=== PATIENT | female | born 1960 | race Caucasian/White ===

== ENCOUNTER 2016-10-04 22:12 | Emergency (ER) | payer MEDICARE, OTHER ==
[~2016-10-04] VITALS: Ht 157.5 cm; Wt 101.0 kg
[~2016-10-04 22:12] MED LIST: AMOX1TAB10 PO; CYCL-319 PO; DICL50TA11 PO; ELIM TOP; HC30CR25 TOP; HYDR-906 PO; IBUP-1542 PO; KETO5DRO58 OP
[2016-10-04 22:18] VITALS: Ht 157.5 cm; Wt 101.0 kg
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
--- NOTE | 2016-10-05 00:41 | RADRPT ---
PROCEDURE: CT brain without contrast. CLINICAL INDICATION: Injury and pain. TECHNIQUE: CT scan of the brain was performed on a multi-detector high-resolution CT scanner. Co ntiguous axial images were obtained from the skull base to the vertex without intravenous contrast. Coronal and sagittal reformatted images were also obtained. Images were reviewed on the PACS works tation. One or more of the following dose reduction techniques were used: - Automated exposure control. - Adjustment of the mA and/or kV according to patient size. - Use of iterative reconstruction technique. Exam CTD/vol = 45.01 mGy. Total exam DLP = 720.23 mGy-cm. COMPARISON: None. FINDINGS: The ventricles and cortical sulci are within normal limits for patient's age. There are no areas of abnormal attenuation within the brain parenchyma. There is no mass effect or midline shift. There is no intracranial hemorrhage or abnormal extra-axial collection. The calvarium is intact. There is no evidence of fracture. Visualized paranasal sinuses and mastoid air cells are clear. IMPRESSION: No acute intracranial abnormality identified. .Kane Medina MD, MD Date Time Electronically viewed and signed by .Kane Medina MD, MD on 10/05/2016 00:40 .T/
--- NOTE | 2016-10-05 01:04 | RADRPT ---
PROCEDURE: XR Shoulder. CLINICAL INDICATION: Left shoulder pain. TECHNIQUE: 3 views of the left shoulder. COMPARISON: None available. FINDINGS: There is no fracture or dislocation. The coracoclavicular interval is normal. The joint spaces are preserved. There are no periarticular calcifications. The visualized lung is clear. IMPRESSION: 1. No fracture or dislocation of the left shoulder. RPTAT: HTAR .Roman Vogel MD, MD Date Time Electronically viewed and signed by .Roman Vogel MD, on 10/05/2016 01:04 .R/
--- NOTE | 2016-10-05 01:04 | RADRPT ---
PROCEDURE: CT Lumbar Spine without contrast. CLINICAL INDICATION: Injury and pain. TECHNIQUE: CT scan of the lumbar spine was performed on a multi-detector high-resolution CT scanbanner. Contiguous axial images were obtained without intravenous contrast. Coronal and sagittal refor matted images were also obtained. Images were reviewed on the PACS workstation. One or more of the following dose reduction techniques were used: - Automated exposure control. - Adjustment of the mA and/or kV according to patient size. - Use of iterative reconstruction technique. Exam CTD/vol = 37.82 mGy. Total exam DLP = 1246.49 mGy-cm. COMPARISON: None. FINDINGS: There are 6 lumbar-type vertebral bodies. There is mild degenerative anterolisthesis of L5 on S1. Gisela mbar vertebral body heights are within normal limits. There is no acute fracture identified. At T12-L1, the disk height is within normal limits. There is no central canal or neural foraminal s tenosis. At L1-L2, the disk height is within normal limits. There is no central canal or neural foraminal st enosis. At L2-L3, the disk height is within normal limits. There is a mild posterior disk bulge there is The re is no central canal or neural foraminal stenosis. At L3-L4, there is mild loss of disk height and air vacuum phenomenon. There is a mild diffuse disk osteophyte complex which combined with mild bilateral facet and ligamentum flavum hypertrophy resul ts in mild central canal stenosis. There is severe right and moderate left neural foraminal stenosi s. At L4-L5, there is mild loss of disk height and a mild diffuse disk osteophyte complex which combine d with moderate bilateral facet and ligamentum flavum hypertrophy results in moderate central canal stenosis. There is moderate right and mild left neural foraminal stenosis. At L5-S1, there is mild loss of disk height and air vacuum phenomenon. There is a mild 3 mm AP diam eter degenerative anterolisthesis of L5 on S1. There is a mild diffuse disk osteophyte complex whic h combined with moderate bilateral facet and ligamentum flavum hypertrophy results in mild central c anal stenosis. There is mild to moderate bilateral neural foraminal stenosis. There is no paraspinal mass or collection. There is a calculus within the lower pole of the right ki dney measuring 6 x 3 mm. IMPRESSION: No acute fracture identified. Mild lumbar spondylosis. There is multilevel central canal and neural foraminal stenosis as describ ed. Mild degenerative anterolisthesis of L5 on S1. Nonobstructing right renal calculus. .Kane Medina MD, Date Time Electronically viewed and signed by .Kane Medina MD, on 10/05/2016 01:04 .T/
--- NOTE | 2016-10-05 01:04 | RADRPT ---
PROCEDURE: XR Finger. CLINICAL INDICATION: Pain. TECHNIQUE: Three views of the right thumb. COMPARISON: None available. FINDINGS: No fracture or dislocation is identified. The joint spaces are preserved. There is soft tissue swe lling along the first finger. No radiopaque foreign body is identified. IMPRESSION: 1. No fracture or dislocation of the right thumb. 2. Soft tissue swelling. RPTAT: HTAR .Roman Vogel MD, MD Date Time Electronically viewed and signed by .Roman Vogel MD, on 10/05/2016 01:04 .R/
[2016-10-05] MEDS ORDERED: AMOX1TAB10 PO (01:22)
[2016-10-05] MEDS ORDERED: IBUP400T22 PO (01:22)
[2016-10-05] MEDS ORDERED: HYDR-906 PO (01:22)
[2016-10-05] MEDS ORDERED: CYCL-319 PO (01:22)
[2016-10-05] MEDS ORDERED: traMADol 50 MG TAB PO ONE (01:30)
[2016-10-05 02:00] VITALS: BP 133/88; PULSE 69; RESP 20; TEMP 98.3
== END 2016-10-05 03:41 | disposition home or self-care (01) ==
LOC: FTE 22:12
DX: S06.0X0A Concussion without loss of consciousness, initial encounter (principal); S16.1XXA Strain of muscle, fascia and tendon at neck level, initial encounter; S60.011A Contusion of right thumb without damage to nail, initial encounter; M54.5 Low back pain; M25.511 Pain in right shoulder; F17.210 Nicotine dependence, cigarettes, uncomplicated; Y04.1XXA Assault by human bite, initial encounter
CPT/HCPCS: 70450; 72125; 72131; 73030; 73140

== ENCOUNTER 2017-02-21 22:06 | Emergency (ER) | payer MEDICARE, OTHER ==
[~2017-02-21] VITALS: Ht 160 cm; Wt 105.5 kg
[~2017-02-21 22:06] MED LIST changes: +IBUP400T22 PO; -KETO5DRO58 OP; +KETO5DRO71 OP
[2017-02-21 22:23] VITALS: Ht 160 cm; Wt 105.5 kg
[2017-02-22] MEDS ORDERED: IBUPROFEN 600 MG TAB PO ONE (03:00)
--- NOTE | 2017-02-22 03:50 | RADRPT ---
PROCEDURE: Chest. CLINICAL INDICATION: Chest pain. TECHNIQUE: Single frontal view of the chest was obtained. COMPARISON: None. FINDINGS: The cardiac silhouette is within normal limits. The aortic arch is unremarkable. There is no focal consolidation, vascular congestion or pleural effusion. There is mild subsegmental atelectasis wit hin the left lung base. There is no pneumothorax. IMPRESSION: Mild left basilar subsegmental atelectasis. .Kane Medina MD, Date Time Electronically viewed and signed by .Kane Medina MD, MD on 02/22/2017 03:49 .T/
[2017-02-22] MEDS ORDERED: AZIT250T94 PO (05:17)
--- NOTE | 2017-02-22 05:46 | ERA ---
ER Documentation Chief Complaint Date/Time DATE: 02/22/17 TIME: 05:35 Chief Complaint multi symptoms like CORCORAN,tingling,ear pains,tonsils,et al HPI 56-year-old female presents with a chief complaint of headache at 2 months. States that the headache has been intermittent. Describes the headache as bilateral, pounding, pressure. Describes body aches without fever or chills. Has been relieved with Tylenol. Patient is also taking cyclobenzaprine, Tylenol with codeine and ibuprofen. Has been evaluated by another hospital who prescribed her the aforementioned medications. Patient is also complaining of ear pains. No aggravating or alleviating factors. Patient denies tonsillitis as stated in nursing notes. Denies fever, abdominal pain, chest pain, shortness of breath, dysphasia, odynophagia, weakness, fatigue, change in hearing. Denies wanting to hurt herself or others. No recent travel. Vaccination status up-to-date. No sick contacts. Patient has no other complaints and describes no other associated manifestations. Nursing notes have been reviewed and are consistent with history given. ROS All systems reviewed and are negative except as per history of present illness. Medications Home Meds Active Scripts Azithromycin* (Zithromax*) 250 Mg Tablet, 250 MG PO .BEATRIS DIRECTED, #6 TAB TAKE 500 MG (2 TABS) THE FIRST DAY THEN 250 MG (1 TAB) DAYS 2-5 Prov:BRIAN PARK PA-C 02/22/17 Amoxicillin/Potassium Clav (Amox-Clav 875-125 mg Tablet) 875-125 mg Tab, 1 TAB PO BID for 7 Days, #14 TAB Prov:GREYSON CEJA NP 10/05/16 Cyclobenzaprine Hcl* (Cyclobenzaprine Hcl*) 10 Mg Tablet, 10 MG PO TID, #15 TAB Prov:GREYSON CEJA NP 10/05/16 Ibuprofen* (Motrin*) 400 Mg Tab, 400 MG PO Q6H Y for PAIN AND OR ELEVATED TEMP, #30 TAB Prov:GREYSON CEJA NP 10/05/16 Hydrocodone/Acetaminophen (Dwale 5-325 Tablet) 1 Each Tablet, 1 TAB PO Q6H Y for SEVERE PAIN LEVEL 7-10, #20 TAB Prov:GREYSON CEJA NP 10/05/16 Diclofenac Sodium* (Diclofenac Sodium*) 50 Mg Tablet.dr, 50 MG PO TID, #15 TAB Prov:CAMILLA,GIGI DO 04/12/16 Cyclobenzaprine Hcl* (Cyclobenzaprine Hcl*) 10 Mg Tablet, 10 MG PO TID, #15 TAB [facility] 04/12/16 Hydrocodone/Acetaminophen (Dwale 5-325 Tablet) 1 Each Tablet, 1 TAB PO Q6H Y for PAIN, #7 TAB Prov:[facility] 04/12/16 Ibuprofen* (Motrin*) 600 Mg Tab, 600 MG PO Q6H Y for PAIN AND OR ELEVATED TEMP, #30 TAB Prov:CAREY MCCARTHY MD 03/12/16 Amoxicillin/Potassium Clav (Amox-Clav 875-125 mg Tablet) 875-125 mg Tab, 1 TAB PO BID for 7 Days, #14 TAB Prov:CAREY MCCARTHY MD 03/12/16 Ketotifen Fumarate (ZADITOR) 5 Ml Drops, 5 ML OP BID, #1 BOTTLE Prov:SHANAE GOMEZ MD 03/08/16 Hydrocortisone* Topical (Hydrocortisone* Topical) 2.5%-28.3 Gm Cream..g., 1 APPLIC TOP BID, #1 TUB Prov:SHANAE GOMEZ MD 03/08/16 Permethrin* (Elimite*) 5% Cr, 1 APPLIC TOP ONCE, #1 TUB Prov:SHANAE GOMEZ MD 03/08/16 Allergies Allergies: Coded Allergies: No Known Allergy (Unverified , 04/12/16) PMhx/Soc History of Surgery: Yes (CHOLECYSTECTOMY ) Anesthesia Reaction: No Hx Neurological Disorder: No Hx Respiratory Disorders: No Hx Cardiac Disorders: No Hx Psychiatric Problems: Yes (DEPRESSION ) Hx Miscellaneous Medical Probl: Yes (ANXIETY) Hx Alcohol Use: Yes Hx Substance Use: No Hx Tobacco Use: Yes Smoking Status: Current some day smoker Physical Exam Vitals Vital Signs Date Time Temp Pulse Resp B/P Pulse Ox O2 Delivery O2 Flow Rate FiO2 02/21/17 22:23 98.8 101 22 120/69 97 Physical Exam Const: Overweight. Mild distress. Head: Normocephalic, Atraumatic. Eyes: Non-injected; No discharge or foreign body. EOMI and CORY bilaterally. Ears: Normal External Ears, EACs clear, TM normal bilaterally without erythema. Nose: Normal external nose; no discharge, septal deviation, or sinus tenderness. Oral: No oral edema visualized. Mucous membranes moist and pink. Neck: Full range of motion. No cervical lymphadenopathy or . Trachea midline. Supple ~ No meningismus. Pulm: Good air movement in upper and lower respiratory tracts. No dyspnea, stridor, tripoding or drooling. Clear to auscultation bilaterally. Cardio: Regular rate and rhythm; No murmurs, gallops or rubs auscultated. No JVD grossly observed. Radial and posterior tibial pulses 2+ bilaterally. No cyanosis. Capillary refill less than 2 seconds. Abd: Soft, non tender, non distended. No guarding, masses. Normal bowel sounds. No McBurney's point tenderness. MS: Normal motor strength, normal tone with gross examination. Skin: No petechiae or rashes. No ulcer, induration, jaundice. Good turgor. Back: No midline, flank or CVA tenderness. Ext: No edema. Normal movement of all extremities grossly observed. Normal ambulation with gross examination. Neur: Awake, alert and oriented x3. Neurovascularly intact bilaterally. Psych: Mildly anxious. Results 24 hrs Current Medications Medications (Trade) Dose Ordered Sig/Arnold Route PRN Reason Start Time Stop Time Status Last Admin Dose Admin Ibuprofen (Motrin) 600 mg ONCE ONCE PO 02/22/17 03:00 02/22/17 03:01 DC 02/22/17 03:10 Procedures/MDM 56-year-old female poor historian presents with a chief complaints of headache, bilateral ear pain, as described in history and physical examination. Due to body aches influenza was obtained and read as negative. Urinalysis unremarkable. Chest x-ray obtained read by the radiologist given the following impression: Unremarkable. Ibuprofen given in the ED with adequate relief of symptoms. Patient is able to walk around without distress. I have little suspicion for bacterial infection, airway obstructive pathologies, or intracranial pathologies including bleed. Little suspicion for influenza A/B. I have no suspicion for patient hurting herself or others. Most likely diagnosis is multiple complaints with unknown etiology. Blood work not indicated at this time.I have spoke with the patient regarding their condition and future management. They have verbally responded that they understand their status and treatment plan. The patients vitals are stable, and their current condition is appropriate for discharge. The patient will be given discharge instructions with return precautions. Departure Diagnosis: Primary Impression: Headache Qualified Code: R51 - Nonintractable headache, unspecified chronicity pattern , unspecified headache type Condition: Stable Patient Instructions: Self-Care for Headaches Additional Instructions: Follow up with your PCP within the next 1-3 days for a more thorough evaluation and a possible referral to a specialist. Return the the emergency department immediately if symptoms worsen or change. If you have any questions regarding medications, ask your pharmacist or us before you leave. If any adverse reactions occur while taking your medications, discontinue the treatment and return to the emergency department immediately. Take your medications as directed, and complete the entire course of treatment. BRIAN PARK PA-C Feb 22, 2017 05:45
== END 2017-02-22 05:44 | disposition home or self-care (01) ==
LOC: FTE 22:06
DX: R51 Headache (principal); F17.210 Nicotine dependence, cigarettes, uncomplicated; R07.9 Chest pain, unspecified
CPT/HCPCS: 71010; 87400